=== PATIENT | male | born 1970 ===

== ENCOUNTER 2025-03-18 10:44 | Emergency (ER) | payer MEDICARE, OTHER ==
[~2025-03-18] VITALS: Ht 175.3 cm; Wt 113.4 kg
[2025-03-18] MEDS ORDERED: Dexamethasone Sod Phos 10 MG/ML 1ML VIAL PO ONE (11:15)
[2025-03-18] MEDS ORDERED: Ketorolac Tromethamine 30mg Vial IM ONE (11:15)
[2025-03-18] MEDS ORDERED: CYCL10 PO (12:48)
[2025-03-18] MEDS ORDERED: PRED20 PO (12:48)
[2025-03-18] MEDS ORDERED: IBUP800 PO (12:48)
== END 2025-03-18 13:35 | disposition home or self-care (01) ==
LOC: ER 10:44
DX: M62.830 Muscle spasm of back (principal)
CPT/HCPCS: 72100; 96372; 99283-25; A9270; J1100; J1885